=== PATIENT | female | born 1965 | race Caucasian/White ===

== ENCOUNTER 2017-04-27 16:10 | Emergency (ER) | payer OTHER ==
[2017-04-27] MEDS ORDERED: PRAVASTATIN PO (16:16)
[2017-04-27] MEDS ORDERED: HYDROCHLOROTHIAZIDE PO (16:17)
[2017-04-27] MEDS ORDERED: ASPIRIN PO (16:17)
[2017-04-27] MEDS ORDERED: STOOL SOFTNER (16:17)
[2017-04-27] MEDS ORDERED: SERTRALINE PO (16:18)
[2017-04-27] MEDS ORDERED: LASIX PO (16:18)
[2017-04-27] MEDS ORDERED: GLIPIZIDE PO (16:18)
[2017-04-27] MEDS ORDERED: LISINOPRIL PO (16:18)
[2017-04-27] MEDS ORDERED: ATENOLOL PO (16:19)
[2017-04-27] MEDS ORDERED: GABAPENTIN PO (16:19)
[2017-04-27] MEDS ORDERED: ALPRAZOLAM PO (16:19)
[2017-04-27] MEDS ORDERED: LINZESS PO (16:20)
[2017-04-27] MEDS ORDERED: CYCLOBENZAPRINE PO (16:20)
[2017-04-27] MEDS ORDERED: TRAZODONE PO (16:20)
[2017-04-27] MEDS ORDERED: HYDROCODONE PO (16:21)
[2017-04-27] MEDS ORDERED: PROMETHAZINE PO (16:21)
[2017-04-27] MEDS ORDERED: LEVOTHYROXINE PO (16:25)
== END 2017-04-27 17:10 | disposition home or self-care (01) ==
LOC: SED 16:10
DX: Z48.01 Encounter for change or removal of surgical wound dressing (principal); I10 Essential (primary) hypertension; E11.9 Type 2 diabetes mellitus without complications
CPT/HCPCS: 82947; 99282

== ENCOUNTER 2017-04-28 20:28 | Emergency (ER) | payer OTHER ==
[~2017-04-28] VITALS: Ht 162.6 cm; Wt 74.8 kg
[~2017-04-28 20:28] MED LIST: ALPRAZOLAM PO; ASPIRIN PO; ATENOLOL PO; CYCLOBENZAPRINE PO; GABAPENTIN PO; GLIPIZIDE PO; HYDROCHLOROTHIAZIDE PO; HYDROCODONE PO; LASIX PO; LEVOTHYROXINE PO; LINZESS PO; LISINOPRIL PO; PRAVASTATIN PO; PROMETHAZINE PO; SERTRALINE PO; STOOL SOFTNER; TRAZODONE PO
== END 2017-04-28 21:23 | disposition home or self-care (01) ==
LOC: SED 20:28
DX: Z48.01 Encounter for change or removal of surgical wound dressing (principal); I25.2 Old myocardial infarction; E11.9 Type 2 diabetes mellitus without complications; I10 Essential (primary) hypertension; Z79.82 Long term (current) use of aspirin; Z79.899 Other long term (current) drug therapy
CPT/HCPCS: 99282